=== PATIENT | female | born 1960 | race Caucasian/White ===

== ENCOUNTER 2016-11-11 07:00 | Inpatient (IN) | payer MEDICARE, OTHER ==
--- NOTE | ~2016-11-11 | DS ---
Discharge Summary [facility] [address] [place]. [address] NAME: KEILA MONTANO : 56 STATUS : DIS IN PAT#: [id number] AGE: 56 ADM/REG DATE : 11/11/16 MR#: [id number] REPORT SERV DATE: 11/25/16 DICTATED BY: MARGUERITE HOFFMAN III DATE: 11/24/16 REPORT STATUS : Draft TRANSCRIBED BY: YAIMA DATE: 11/24/16 Data Collection from hospitalization DISCHARGE DIAGNOSIS(ES): 1. Small bowel obstruction versus ileus - resolved. 2. Urinary tract infection. 3. Hypertension. 4. Coronary artery disease, status post coronary artery bypass grafting and drug-eluting stent placement in the past. 5. Hyperlipidemia. 6. History of tobacco abuse. 7. History of cerebrovascular accident. 8. History of brain aneurysm. 9. Gastroesophageal reflux disease. 10.Depression. CONSULTATIONS: Ilan Medel M.D. PROCEDURES PERFORMED: A CT scan of the abdomen and pelvis without contrast, 11/11/2016. MEDICATIONS: Aspirin 81 mg twice a day, Cymbalta 90 mg daily, Prevacid 30 mg daily, Keppra 375 mg twice a day, Levaquin 750 mg daily, Cozaar 50 mg daily, Lopressor 25 mg twice a day, Singulair 10 mg daily, Zofran 4 mg three times a day as needed, Ditropan XL 10 mg daily, Seroquel 50 mg at bedtime, Zocor 40 mg at bedtime, and Ambien 10 mg at bedtime. CONDITION AT DISCHARGE: Stable. DISPOSITION: The patient was discharged home on a soft diet with activities as instructed. She would follow up with me as needed. HOSPITAL COURSE: This is a 56-year-old female who presented to the hospital through the emergency room with evidence for small bowel obstruction. The patient had complained of a four to five day history of feeling sick. She describes profuse watery diarrhea. She said that she vomited once. She describes vague nonspecific abdominal pain. She presented to the emergency room and was found to have radiographic evidence for small bowel obstruction. It was felt by the emergency room physician that admission to the hospital was indicated. The patient was very vague regarding her symptoms. She describes watery diarrhea which had been ongoing for four to five days. She describes some lower abdominal discomfort but was very vague and nonspecific regarding this. She was admitted to the hospital at this time for further evaluation and treatment. Upon admission, a CT scan of the abdomen and pelvis had shown evidence for numerous dilated loops of small bowel with air-fluid levels consistent with partial obstruction. No transition point was seen. There was gas in the colon. Electrolytes were unremarkable. White blood cell count was elevated at 16,000. The patient was started on parenteral fluids, bowel rest, and NG suction. Stool cultures were going to be obtained. At this time, there was no evidence of the need for acute surgical intervention. The following day she said she was feeling better. She had no complaints of abdominal pain. She did complain [address]charge Summary [address] [facility] [address] NAME: KEILA MONTANO : 56 STATUS : DIS IN [facility]#: [id number] AGE: 56 ADM/REG DATE : 11/11/16 MR#: [id number] REPORT SERV DATE: 11/25/16 DICTATED BY: MARGUERITE HOFFMAN III DATE: 11/24/16 REPORT STATUS : Draft TRANSCRIBED BY: YAIMA DATE: 11/24/16 of some pain from the NG tube. She remained n.p.o. with the NG tube remained in place. IV fluids were continued. A small bowel followthrough was going to be performed. On the , she said she was feeling better. She had no abdominal pain. She was passing stool. NG tube was removed. Clear liquids were started. On the , she did complain of some nausea. The NG-tube had not been removed secondary to the nausea. She was found to have some dark blood per the NG tube. There was no blood per rectum. Protonix was given. The NG tube was removed. She was seen by Dr. Ilan Medel. Her white count was 12.2. It was felt there were no signs of overt gastrointestinal bleeding. Protonix was continued. Gastrografin small bowel followthrough was performed to evaluate the partial small bowel obstruction. On 11/15/2016, she had no nausea or vomiting, and the NG tube had been removed. Urine C and S had revealed E. coli. KUB was going to be performed. Full liquids were started. The partial small bowel obstruction had resolved. The next day, she continued to improve. She was wanting to go home. She was tolerating full liquids well. KUB had been performed and was clear. Her diet was advanced as tolerated. Discharge planning was performed. On 11/17/2016, she was feeling much better. She was wanting to go home. She had no further nausea. She was tolerating a soft diet. Discharge instructions were given. Due to her improved and stable condition, she was discharged home with the above-stated instructions. Information collected by: Hayley Morales I submit the above information as my discharge summary. PRIYANKA/YAIMA Marguerite Hoffman III, M.D. / [id number] CC: Saba Quiles III, M.D. Henry Paik, M.D.
--- NOTE | ~2016-11-11 | CN ---
Consultation Report [facility] [address] [place]. [address] NAME: KEILA MONTANO : 56 STATUS : ADM IN [facility]#: [id number] AGE: 56 ADM/REG DATE : 11/11/16 MR#: [id number] REPORT SERV DATE: 11/14/16 DICTATED BY: ILAN MEDEL DATE: 11/14/16 REPORT STATUS : Draft TRANSCRIBED BY: MODL DATE: 11/14/16 CONSULTATION DATE OF CONSULTATION: 11/14/2016 INDICATION: The patient with nausea, vomiting, and diarrhea. HISTORY OF PRESENT ILLNESS: 56-year-old female, admitted because of four-day history of nausea and vomiting. She claims that she has been feeling sick several days ago without clear inciting events. Admitted to nausea and vomiting, no hematemesis, had diarrhea. She has had a history of stomach surgery for ulcers as well as cholecystectomy in the past. Denies any hysterectomy. CT scan apparently showed dilated loops of small bowel. Surgery consultation was obtained. Partial small bowel obstruction was considered, since she did have bowel movements. Patient states that she had a brain aneurysm and she has short-term memory loss. Very poor historian, as a result of this. PAST MEDICAL HISTORY: Coronary artery disease, hypertension, hyperlipidemia, tobacco use, CVA in the past, history of brain aneurysm, reflux disease, and depression. PAST SURGICAL HISTORY: Coronary artery bypass graft surgery, and history of coronary artery stent placement. MEDICATIONS: See MAR. ALLERGIES: CODEINE AND HYDROCODONE. PHYSICAL EXAMINATION: VITAL SIGNS: Temperature is 98.6, blood pressure 156/81, and pulse of 81. GENERAL: Well-developed, well-nourished female, in no acute distress. The patient appears to be comfortable. Denies any nausea. HEENT: Normocephalic and atraumatic. Throat is clear. LUNGS: Clear. HEART: S1 and S2 without murmurs, gallops, or rubs. ABDOMEN: Normoactive bowel sounds. Soft, nondistended, and nontender. EXTREMITIES: Negative for cyanosis, clubbing, or edema. LABORATORY DATA: Sodium 141, potassium 4.0, BUN 4, creatinine 0.72. White count of 12.2, H and H of 10 and 33, and INR 1.1. IMPRESSION: The patient with partial small bowel obstruction. No signs of overt gastrointestinal bleeding. Continue with Protonix. We will obtained a Gastrografin small- bowel follow-through x-ray to evaluate the partial small bowel obstruction. Consultation Report [place] [address] [place]. [address] NAME: KEILA MONTANO : 56 STATUS : ADM IN PAT#: [id number] AGE: 56 ADM/REG DATE : 11/11/16 MR#: [id number] REPORT SERV DATE: 11/14/16 DICTATED BY: ILAN MEDEL DATE: 11/14/16 REPORT STATUS : Draft TRANSCRIBED BY: MODCarmela DATE: 11/14/16 HP/YAIMA Ilan Medel M.D. / [id number] CC: Olivier Benitez III, M.D.
--- NOTE | ~2016-11-11 | HP ---
History And Physical [place] [address] [place]. [address] NAME: KEILA MONTANO : 56 STATUS : ADM IN [facility]#: [id number] AGE: 56 ADM/REG DATE : 11/11/16 MR#: [id number] REPORT SERV DATE: 11/11/16 DICTATED BY: MARGUERITE HOFFMAN III DATE: 11/11/16 REPORT STATUS : Draft TRANSCRIBED BY: YAIMA DATE: 11/11/16 DATE OF ADMISSION: 11/11/2016 HISTORY OF PRESENT ILLNESS: This 56-year-old female was admitted to the hospital through the ER with evidence for small bowel obstruction. The patient complains of a four to five day history of feeling "sick." She describes profuse watery diarrhea. She states she vomited once. She describes a vague, nonspecific abdominal pain. The patient presented to the emergency room and was found have radiographic evidence for a small bowel obstruction. It was felt by the emergency room physician that admission to the hospital was indicated. The patient is very vague regarding her symptoms. She describes watery diarrhea, which has been ongoing for four to five days. She describes some lower abdominal discomfort but is very vague and nonspecific regarding this. She states she vomited only once. PAST MEDICAL HISTORY: 1. Coronary artery disease. 2. History of coronary artery bypass graft. 3. History of drug-eluting stent placement in the past. 4. Hypertension. 5. Hyperlipidemia. 6. History of tobacco abuse. 7. History of cerebrovascular accident in the past. 8. History of brain aneurysm. 9. History gastroesophageal reflux disease. 10.History of depression. ALLERGIES: CODEINE AND HYDROCODONE. MEDICATIONS: Aspirin, Cymbalta, Prevacid, Keppra, Cozaar, Lopressor, Singulair, Ditropan, Seroquel, Zocor, and Ambien. SOCIAL HISTORY: The patient has a history of tobacco abuse. She is disabled. She lives locally. She is not . REVIEW OF SYSTEMS: The patient has a history of hyperlipidemia. She has a history of seizure disorder. She has a history of "brain aneurysm clipping." PAST SURGICAL HISTORY: Includes the above as coronary stent placement, coronary artery bypass graft, and laparoscopic cholecystectomy. PHYSICAL EXAMINATION: GENERAL: This is a female, in no acute distress. She is alert and oriented. VITAL SIGNS: Blood pressure 148/86, temperature 97.7, and pulse 89. HEENT: Unremarkable. Cranial nerves 2 through 12 are normal. History And Physical [address] [address] NAME: KEILA MONTANO : 56 STATUS : ADM IN [facility]#: [id number] AGE: 56 ADM/REG DATE : 11/11/16 MR#: [id number] REPORT SERV DATE: 11/11/16 DICTATED BY: MARGUERITE HOFFMAN III DATE: 11/11/16 REPORT STATUS : Draft TRANSCRIBED BY: YAIMA DATE: 11/11/16 LUNGS: Clear. CARDIAC: Normal. ABDOMEN: Soft and nontender. EXTREMITIES: Normal. No edema. LABORATORY DATA: CT scan of the abdomen and pelvis, which I reviewed shows evidence for numerous dilated loops of small bowel with air-fluid levels consistent with partial obstruction. No transition point is seen. There is gas in the colon. Electrolytes are unremarkable. White blood cell count elevated at 16,000. ASSESSMENT: 56-year-old female with: 1. Abdominal pain and diarrhea, of unclear etiology. 2. History of coronary artery disease. 3. Tobacco abuse. 4. History of seizure disorder. 5. Depression. 6. History of laparoscopic cholecystectomy. 7. Hypertension. 8. Hyperlipidemia. PLAN: The patient has been admitted and started on parenteral fluids, bowel rest, and NG suction. I have requested stool cultures because of her diarrhea, which is not completely consistent with her evidence for obstruction radiographically. At this time, there is no evidence of need for acute surgical intervention. This plan has been explained to the patient. Her questions were answered. She understands and agrees to this as planned. LATIA/YAIMA Marguerite Hoffman III, M.D. / [id number] CC: Saba Quiles III, M.D.
[2016-11-11 06:56] LABS: BASOPHILS 0.1 %; BASOPHILS ABSOLUTE 0.02 10/3/uL (0.0-0.16); EOSINOPHILS ABSOLUTE 0.16 10/3/uL (0.0-0.53); HEMATOCRIT 40.6 % (36.0-48.0); HEMOGLOBIN 13.7 g/dL (12.0-16.0); IMMATURE GRANULOCYTES 0.2 %; IMMATURE GRANULOCYTES ABSOLUTE 0.04 10/3/uL (0.0-0.11); LYMPHOCYTES 12.2 %; LYMPHOCYTES ABSOLUTE 2.02 10/3/uL (0.67-4.30); MEAN CORPUS HGB CONC 33.7 g/dL (32.0-36.0); MEAN CORPUSCULAR HEMOGLOB 28.7 pg (26.0-34.0); MEAN CORPUSCULAR VOLUME 85.1 fL (80-100); MEAN PLATELET VOLUME 9.7 fL (9.2-13.0); MONOCYTES 6.2 %; MONOCYTES ABSOLUTE 1.03 10/3/uL (0.21-1.20); NEUTROPHILS 80.3 %; NEUTROPHILS ABSOLUTE 13.26 10/3/uL (2.02-8.40); RBC DISTRIBUTION WIDTH 12.8 % (12.0-16.0); RED CELL COUNT 4.77 10/6/uL (4.0-5.6)
[2016-11-11 07:00] LABS: ER CBC TAT 0 Hrs 08 Mins; MANUAL DIFF NO %; PLATELET COUNT 318 10/3/uL (150-400); WHITE BLOOD CELLS 16.5 10/3/uL (4.5-10.5)
[~2016-11-11 07:00] MED LIST: AMB10 PO; ASA5GR PO; ASAB PO; ASABAYER PO; ATEN50 PO; BRILINTA90 MG PO; CEFT5 PO; ENABLEX15 PO; ENABLEX7.5 PO; FLONASE NAS; HALF81 PO; IMDUR30 PO; IMDUR60 PO; KEPPRA250 PO; KEPPRA500 PO; LISINOPRIL; LOP25 PO; NITROQUICK0.4 MG SL; NITROSPRAY SL; NTG150 SL; PEP20 PO; PEPCID; PERCOCET1 TA2 PO; PLAVIX PO; PR25 PO; PREV30 PO; PRIN10 PO; PRIN5 PO; PROTONIX PO; PROZAC PO; PROZAC40 MG PO; SINGULAIR1 PO; SUCR PO; TOLTERODINE; ULTRAM50 PO; VESICARE10 MG PO; ZOCOR20 PO; ZOCOR40 PO
[2016-11-11 07:12] LABS: A/G RATIO 0.9 (0.7-1.9); ALBUMIN 3.1 G/DL (3.5-5.0); ALKALINE PHOSPHATASE 141 U/L (45-117); BUN (BLOOD UREA NITROGEN) 13 MG/DL (6-23); CALCIUM, SERUM 8.4 MG/DL (8.5-10.4); CHLORIDE, SERUM 111 MMOL/L (96-112); CO2 (CARBON DIOXIDE) 24 MMOL/L (24-34); GFR AFRICAN AMERICAN 64 ML/MIN (>=60); GFR NON AFRICAN AMERICAN 55 ML/MIN (>=60); GLOBULIN 3.5 G/DL (2.5-4.1); GLUCOSE, SERUM 120 MG/DL (60-99); SGOT(AST) 30 U/L (5-40); SGPT(ALT) 31 U/L (5-65); SODIUM, SERUM 143 MMOL/L (135-148); TOTAL BILIRUBIN 0.9 MG/DL (0-1.2); TOTAL PROTEIN 6.6 G/DL (6.0-8.5)
[2016-11-11 08:19] LABS: ASCORBIC ACID (UR NOT ORDER) NEG (NEG); BILIRUBIN, URINE NEGATIVE (NEG); ER URINALYSIS TAT 0 Hrs 28 Mins; KETONE, URINE NEGATIVE (NEG); LEUKOCYTE ESTERASE(NOT OR MOD (NEG); NITRITE (URINE) POS (NEG); WBC (NOT ORDERED) (RFLEX) 22 (0-5)
[2016-11-11] MEDS ORDERED: AMB10 PO (08:23)
[2016-11-11] MEDS ORDERED: CYMBALTA30 PO (08:23)
[2016-11-11] MEDS ORDERED: LOP25 PO (08:24)
[2016-11-11] MEDS ORDERED: SINGULAIR1 PO (08:24)
[2016-11-11] MEDS ORDERED: COZ50 PO (08:24)
[2016-11-11] MEDS ORDERED: KEPPRA250 PO (08:25)
[2016-11-11] MEDS ORDERED: PREV30 PO (08:26)
[2016-11-11] MEDS ORDERED: ZOCOR40 PO (08:27)
[2016-11-11] MEDS ORDERED: SEROQUEL50 MG PO (08:27)
[2016-11-11] MEDS ORDERED: DITROPAN XL10 MG PO (08:27)
[2016-11-11] MEDS ORDERED: HALF81 PO (08:27)
[2016-11-12 06:02] LABS: BASOPHILS 0.1 %; BASOPHILS ABSOLUTE 0.01 10/3/uL (0.0-0.16); EOSINOPHILS 2.2 %; EOSINOPHILS ABSOLUTE 0.18 10/3/uL (0.0-0.53); HEMATOCRIT 37.6 % (36.0-48.0); HEMOGLOBIN 12.4 g/dL (12.0-16.0); IMMATURE GRANULOCYTES 0.1 %; IMMATURE GRANULOCYTES ABSOLUTE 0.01 10/3/uL (0.0-0.11); LYMPHOCYTES 27.1 %; LYMPHOCYTES ABSOLUTE 2.21 10/3/uL (0.67-4.30); MEAN CORPUSCULAR HEMOGLOB 28.7 pg (26.0-34.0); MEAN PLATELET VOLUME 9.9 fL (9.2-13.0); MONOCYTES 8.1 %; MONOCYTES ABSOLUTE 0.66 10/3/uL (0.21-1.20); NEUTROPHILS 62.4 %; NEUTROPHILS ABSOLUTE 5.08 10/3/uL (2.02-8.40); PLATELET COUNT 299 10/3/uL (150-400); RBC DISTRIBUTION WIDTH 13.1 % (12.0-16.0); RED CELL COUNT 4.32 10/6/uL (4.0-5.6)
[2016-11-12 06:05] LABS: MANUAL DIFF NO %; WHITE BLOOD CELLS 8.2 10/3/uL (4.5-10.5)
[2016-11-12 06:22] LABS: BUN (BLOOD UREA NITROGEN) 7 MG/DL (6-23); CALCIUM, SERUM 7.3 MG/DL (8.5-10.4); CHLORIDE, SERUM 112 MMOL/L (96-112); CO2 (CARBON DIOXIDE) 25 MMOL/L (24-34); GFR AFRICAN AMERICAN 94 ML/MIN (>=60); GFR NON AFRICAN AMERICAN 81 ML/MIN (>=60); GLUCOSE, SERUM 120 MG/DL (60-99); POTASSIUM, SERUM 3.3 MMOL/L (3.5-5.3); SODIUM, SERUM 143 MMOL/L (135-148)
[2016-11-13 08:59] LABS: BASOPHILS 0.2 %; BASOPHILS ABSOLUTE 0.02 10/3/uL (0.0-0.16); EOSINOPHILS ABSOLUTE 0.12 10/3/uL (0.0-0.53); HEMATOCRIT 38.7 % (36.0-48.0); HEMOGLOBIN 12.8 g/dL (12.0-16.0); IMMATURE GRANULOCYTES 0.2 %; IMMATURE GRANULOCYTES ABSOLUTE 0.02 10/3/uL (0.0-0.11); LYMPHOCYTES 20.8 %; LYMPHOCYTES ABSOLUTE 2.53 10/3/uL (0.67-4.30); MEAN CORPUS HGB CONC 33.1 g/dL (32.0-36.0); MEAN CORPUSCULAR HEMOGLOB 29.2 pg (26.0-34.0); MEAN CORPUSCULAR VOLUME 88.2 fL (80-100); MEAN PLATELET VOLUME 9.5 fL (9.2-13.0); MONOCYTES 9.2 %; MONOCYTES ABSOLUTE 1.12 10/3/uL (0.21-1.20); NEUTROPHILS 68.6 %; NEUTROPHILS ABSOLUTE 8.34 10/3/uL (2.02-8.40); PLATELET COUNT 295 10/3/uL (150-400); RBC DISTRIBUTION WIDTH 13.1 % (12.0-16.0); RED CELL COUNT 4.39 10/6/uL (4.0-5.6)
[2016-11-13 09:00] LABS: MANUAL DIFF NO %; WHITE BLOOD CELLS 12.2 10/3/uL (4.5-10.5)
[2016-11-13 09:15] LABS: BUN (BLOOD UREA NITROGEN) 4 MG/DL (6-23); CALCIUM, SERUM 8.2 MG/DL (8.5-10.4); CHLORIDE, SERUM 107 MMOL/L (96-112); CO2 (CARBON DIOXIDE) 27 MMOL/L (24-34); CREATININE 0.72 MG/DL (0.55-1.02); GFR AFRICAN AMERICAN 107 ML/MIN (>=60); GFR NON AFRICAN AMERICAN 92 ML/MIN (>=60); GLUCOSE, SERUM 109 MG/DL (60-99); POTASSIUM, SERUM 2.9 MMOL/L (3.5-5.3); SODIUM, SERUM 141 MMOL/L (135-148)
[2016-11-13 19:05] LABS: HEMATOCRIT 35.3 % (36.0-48.0); HEMOGLOBIN 11.6 g/dL (12.0-16.0)
[2016-11-14 07:28] LABS: HEMATOCRIT 33.2 % (36.0-48.0); HEMOGLOBIN 10.7 g/dL (12.0-16.0)
[2016-11-14 15:18] LABS: HEMATOCRIT 33.2 % (36.0-48.0)
[2016-11-14 20:00] LABS: HEMATOCRIT 33.2 % (36.0-48.0); HEMOGLOBIN 11.1 g/dL (12.0-16.0)
[2016-11-15 06:47] LABS: BASOPHILS 0.2 %; BASOPHILS ABSOLUTE 0.01 10/3/uL (0.0-0.16); EOSINOPHILS 5.1 %; EOSINOPHILS ABSOLUTE 0.29 10/3/uL (0.0-0.53); HEMATOCRIT 32.6 % (36.0-48.0); HEMOGLOBIN 10.8 g/dL (12.0-16.0); IMMATURE GRANULOCYTES 0.2 %; IMMATURE GRANULOCYTES ABSOLUTE 0.01 10/3/uL (0.0-0.11); LYMPHOCYTES 38.4 %; LYMPHOCYTES ABSOLUTE 2.18 10/3/uL (0.67-4.30); MANUAL DIFF NO %; MEAN CORPUS HGB CONC 33.1 g/dL (32.0-36.0); MEAN CORPUSCULAR HEMOGLOB 28.8 pg (26.0-34.0); MEAN CORPUSCULAR VOLUME 86.9 fL (80-100); MEAN PLATELET VOLUME 9.6 fL (9.2-13.0); MONOCYTES 11.1 %; MONOCYTES ABSOLUTE 0.63 10/3/uL (0.21-1.20); NEUTROPHILS ABSOLUTE 2.56 10/3/uL (2.02-8.40); PLATELET COUNT 270 10/3/uL (150-400); RBC DISTRIBUTION WIDTH 12.8 % (12.0-16.0); RED CELL COUNT 3.75 10/6/uL (4.0-5.6); WHITE BLOOD CELLS 5.7 10/3/uL (4.5-10.5)
[2016-11-15 07:00] LABS: BUN (BLOOD UREA NITROGEN) 3 MG/DL (6-23); CALCIUM, SERUM 8.6 MG/DL (8.5-10.4); CHLORIDE, SERUM 109 MMOL/L (96-112); CO2 (CARBON DIOXIDE) 27 MMOL/L (24-34); CREATININE 0.74 MG/DL (0.55-1.02); GFR AFRICAN AMERICAN 104 ML/MIN (>=60); GFR NON AFRICAN AMERICAN 89 ML/MIN (>=60); GLUCOSE, SERUM 106 MG/DL (60-99); POTASSIUM, SERUM 3.4 MMOL/L (3.5-5.3); SODIUM, SERUM 144 MMOL/L (135-148)
[2016-11-16] MEDS ORDERED: LEVAQUIN750 MG PO (09:37)
[2016-11-16] MEDS ORDERED: ZOFRAN4 PO (09:37)
== END 2016-11-17 10:54 | disposition home or self-care (01) | DRG 389 ==
LOC: ER 07:00 → 5SO 09:06
PROVIDERS: Nurse Practitioner; Surgery
DX: K56.60 Unspecified intestinal obstruction (principal); N39.0 Urinary tract infection, site not specified; I10 Essential (primary) hypertension; I25.10 Atherosclerotic heart disease of native coronary artery without angina pectoris; Z95.1 Presence of aortocoronary bypass graft; Z95.5 Presence of coronary angioplasty implant and graft; E78.5 Hyperlipidemia, unspecified; Z87.891 Personal history of nicotine dependence; Z86.73 Personal history of transient ischemic attack (TIA), and cerebral infarction without residual deficits; K21.9 Gastro-esophageal reflux disease without esophagitis; F32.9 Major depressive disorder, single episode, unspecified; G40.909 Epilepsy, unspecified, not intractable, without status epilepticus; Z88.5 Allergy status to narcotic agent
CPT/HCPCS: 74000; 74020; 74176; 74250; 80048; 80053; 81001; 83690; 84132; 85014; 85018; 85025; 87045; 87046; 87046-59; 87077; 87086; 87186; 87899; 87899-59; 93005; 99285; A9270-GY; C9113; J2405; J2550